=== PATIENT | male | born 1955 | race Hispanic/Latino ===

== ENCOUNTER 2021-10-12 00:10 | Emergency (ER) | payer SELFPAY ==
[~2021-10-12] VITALS: Ht 167.6 cm; Wt 134.0 kg
[~2021-10-12 00:10] MED LIST: ATENOLOL100 MG PO; HYDROCHLOROTHIA50 MG PO; MELOXICAM15 MG PO; PRAVASTATIN SOD40 MG PO; TYLENOL WITH C1 EACH PO
--- OUTSIDE RECORDS SUMMARY | 2021-10-12 00:18 | XMS ---
PreManage Notification: [facility] Security [employer] Events No recent Security Events currently on file CRITERIA MET - [facility] - 3 Facilities in 90 Days - [facility] - 2 Visits in 30 Days CARE PROVIDERS Antelmo Rivas PA-C Physician Current PHONE: Unknown Care Guidelines exist for the following facilities: [facility] [place] ( 05/12/2016 ) Ramy VISIT COUNT (12 MO.) 1 [facility] 1 [facility] 2 [facility] 1 [facility] TOTAL 5 NOTE: Visits indicate total known visits. ED/UCC VISIT TRACKING (12 MO.) 10/12/2021 00:11 [facility] TYPE: Emergency COMPLAINT: - ABD PAIN 10/11/2021 02:52 [facility] [place] TYPE: Emergency DIAGNOSES: - HEADACHE ABDOMINAL PAIN - Unspecified abdominal pain 09/24/2021 00:57 [facility] TYPE: Emergency COMPLAINT: - Headache_HEADACHE, ABD PAIN, DISTENDED 09/20/2021 02:[facility] [place] [facility]: [facility] DIAGNOSES: - Flank Pain - Low back pain, unspecified - Other chronic pain - Nasal congestion 07/22/2021 10:45 [facility] TYPE: Emergency DIAGNOSES: - Shortness of Breath - Other specified abnormalities of plasma proteins - Acute on chronic combined systolic (congestive) and diastolic (congestive) heart failure INPATIENT VISIT TRACKING (12 MO.) 09/24/2021 00:57 Ema [facility] TYPE: Medical Surgical COMPLAINT: - [facility] [place] ETI[facility]; ELEV TROPONINS; ABD PAIN, NAUSEA; HX DM, HTN, AFIB_HEADACHE, ABD PAIN, DISTENDED DIAGNOSES: 0. Dyspnea, unspecified 1. Hypo-osmolality and hyponatremia 2. Body mass index [BMI] 45.0-49.9, adult 3. Morbid (severe) obesity due to excess calories 4. Dehydration 5. Unspecified acute conjunctivitis, left eye 6. Other specified abnormalities of plasma proteins 7. Gastro-esophageal reflux disease without esophagitis 8. Anxiety disorder, unspecified 9. Type 2 diabetes mellitus without complications 10. Unspecified asthma, uncomplicated 11. Essential (primary) hypertension 12. Paroxysmal atrial fibrillation 13. Viral intestinal infection, unspecified 14. Unspecified osteoarthritis, unspecified site 15. Alcohol abuse, uncomplicated 16. Cannabis abuse, uncomplicated 17. Other [facility] (current) drug therapy 18. [facility] (current) use of aspirin 19. [facility] long term care (current) use of oral hypoglycemic drugs 20. 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 Personal history of nicotine dependence 07/22/2021 10:45 [facility] TYPE: Internal Medicine DIAGNOSES: - Hypertensive emergency - Acute on chronic combined systolic (congestive) and diastolic (congestive) heart failure - Other specified abnormalities of plasma proteins - Acute on chronic diastolic (congestive) heart failure - Hypertensive heart disease with heart failure - Atherosclerotic heart disease of [place] coronary artery with unspecified angina pectoris [email or web address]
[2021-10-12] MEDS ORDERED: METFORMIN HCL500 MG PO (00:31)
[2021-10-12] MEDS ORDERED: ONDANSETRON ODT8 MG PO (05:00)
[2021-10-12] MEDS ORDERED: HYDROCODON-ACE1 EA10 PO (05:00)
[2021-10-12] MEDS ORDERED: LASIX20 MG PO (05:00)
== END 2021-10-12 05:22 | disposition home or self-care (01) ==
LOC: ED 00:10
DX: K80.50 Calculus of bile duct without cholangitis or cholecystitis without obstruction (principal); R18.8 Other ascites; I50.9 Heart failure, unspecified; I10 Essential (primary) hypertension; E11.9 Type 2 diabetes mellitus without complications; Z79.899 Other long term (current) drug therapy; Z79.84 Long term (current) use of oral hypoglycemic drugs
CPT/HCPCS: 36415; 74177; 76705; 80053; 81001; 83690; 83735; 83880; 85025; 96361; 96375; 99284-25; J1940; J2270; J2405; J2550; J7030; Q9967